=== PATIENT | female | born 1995 | race Caucasian/White ===

== ENCOUNTER 2020-11-13 17:58 | Inpatient (IN) | payer SELFPAY ==
[~2020-11-13] VITALS: Ht 167.6 cm; Wt 64.0 kg
[2020-11-13 18:39] LABS: HEMATOCRIT 42.7 % (37.0-47.0); HEMOGLOBIN 14.9 g/dl (12.0-16.0); IMMATURE GRANULOCYTES 0.4 % (0.0-5.0); MEAN CORPUSCULAR HGB 40.8 pG CALC (26.0-32.0); MEAN CORPUSCULAR HGB CONC 34.9 g/dL CAL (32.0-36.0); NEUT# 6.8 thou/uL (2.00-7.15); RED BLOOD COUNT 3.65 mill/uL (4.20-5.60)
[2020-11-13 18:40] LABS: URINE BLOOD DIPSTICK SMALL (NEGATIVE); URINE COLOR YELLOW; URINE GLUCOSE - DIPSTICK NEGATIVE (NEGATIVE); URINE KETONE TRACE mg/dL (NEGATIVE); URINE LEUK ESTERASE TRACE (NEGATIVE); URINE NITRITE - DIPSTICK NEGATIVE (Negative); URINE PROTEIN - DIPSTICK TRACE mg/dL (NEG-TRACE); URINE SPECIFIC GRAVITY 1.015
[2020-11-13 18:49] LABS: URINE BILIRUBIN - DIPSTICK SMALL (NEGATIVE)
[2020-11-13 18:55] LABS: URINE SQUAMOUS EPITHELIAL CELL FEW EPI/hpf (0-FEW); URINE WBC 0-2 WBC/hpf (0-5)
[2020-11-13 18:56] LABS: ALBUMIN 4.2 g/dL (3.2-5.0); ALKALINE PHOSPHATASE 126 u/l (38-126); ANION GAP 10 (6-22 (CALC)); BILIRUBIN, TOTAL 1.1 mg/dL (0.0-1.4); BUN 9 mg/dL (7-17); BUN/CREATININE RATIO 18 (12-20 (CALC)); CARBON DIOXIDE 29 mmol/l (22-30); CHLORIDE 104 mmol/l (95-108); CREATININE 0.5 mg/dL (0.5-1.0); GFR > 60 ML/MIN (>=60 (CALC)); GFR FOR AFR.AMER. > 60 ML/MIN (>=60 (CALC)); POTASSIUM 3.2 mmol/l (3.5-5.1); SGOT/AST 276 u/l (14-36); SODIUM 139 mmol/l (137-146); TOTAL PROTEIN 6.9 g/dL (6.3-8.2)
[2020-11-13 19:03] LABS: LIPASE 5552 u/l (23-300)
[2020-11-13 21:40] VITALS: BP 147/102
[2020-11-14] VITALS (7 sets, daily range): BP systolic 136–147; BP diastolic 89–101
[2020-11-14 05:31] LABS: HEMATOCRIT 37.3 % (37.0-47.0); MEAN CORPUSCULAR HGB 40.5 pG CALC (26.0-32.0); MEAN CORPUSCULAR HGB CONC 34.3 g/dL CAL (32.0-36.0); RED BLOOD COUNT 3.16 mill/uL (4.20-5.60); RED CELL DISTRI WIDTH 14.8 % (11.5-15.5)
[2020-11-14 05:33] LABS: INTERNATIONAL NORMALIZED RATIO 1.1 RATIO (0.7-1.3); PROTHROMBIN TIME 10.6 SECONDS (9.0-12.5)
[2020-11-14 05:39] LABS: HEMOGLOBIN 12.8 g/dl (12.0-16.0)
[2020-11-14 05:50] LABS: ALKALINE PHOSPHATASE 87 u/l (38-126); AMYLASE 307 u/l (30-110); ANION GAP 7 (6-22 (CALC)); BILIRUBIN, TOTAL 0.9 mg/dL (0.0-1.4); BUN 10 mg/dL (7-17); BUN/CREATININE RATIO 19 (12-20 (CALC)); CARBON DIOXIDE 27 mmol/l (22-30); CHLORIDE 107 mmol/l (95-108); CREATININE 0.5 mg/dL (0.5-1.0); GFR > 60 ML/MIN (>=60 (CALC)); GFR FOR AFR.AMER. > 60 ML/MIN (>=60 (CALC)); MAGNESIUM 1.6 mg/dL (1.6-2.3); POTASSIUM 2.9 mmol/l (3.5-5.1); SGOT/AST 142 u/l (14-36); SODIUM 138 mmol/l (137-146)
[2020-11-14 06:19] LABS: TOTAL PROTEIN 5.4 g/dL (6.3-8.2)
[2020-11-14 06:20] LABS: LIPASE 4195 u/l (23-300)
[2020-11-15 04:00] VITALS: BP 135/92
[2020-11-15 05:32] LABS: HEMATOCRIT 34.7 % (37.0-47.0); MEAN CORPUSCULAR HGB 40.8 pG CALC (26.0-32.0); MEAN CORPUSCULAR HGB CONC 34.6 g/dL CAL (32.0-36.0); RED BLOOD COUNT 2.94 mill/uL (4.20-5.60); RED CELL DISTRI WIDTH 14.1 % (11.5-15.5)
[2020-11-15 05:56] LABS: ANION GAP 6 (6-22 (CALC)); BUN 5 mg/dL (7-17); BUN/CREATININE RATIO 12 (12-20 (CALC)); CARBON DIOXIDE 24 mmol/l (22-30); CHLORIDE 105 mmol/l (95-108); CREATININE 0.4 mg/dL (0.5-1.0); GFR > 60 ML/MIN (>=60 (CALC)); GFR FOR AFR.AMER. > 60 ML/MIN (>=60 (CALC)); INTERNATIONAL NORMALIZED RATIO 1.1 RATIO (0.7-1.3); MAGNESIUM 1.8 mg/dL (1.6-2.3); POTASSIUM 3.2 mmol/l (3.5-5.1); PROTHROMBIN TIME 11.3 SECONDS (9.0-12.5); SODIUM 132 mmol/l (137-146)
[2020-11-15 06:41] LABS: LIPASE 3081 u/l (23-300)
[2020-11-15 07:35] VITALS: BP 150/96
[2020-11-15] MEDS ORDERED: ZOFRAN4 MG/TAB PO (15:24)
[2020-11-15] MEDS ORDERED: ULTRAM50 MG PO (15:25)
[2020-11-15 16:00] VITALS: BP 137/98
== END 2020-11-15 16:56 | disposition home or self-care (01) | DRG 440 ==
LOC: ED 17:58 → ED-I 20:01 → ED 20:23 → MS2 20:24
PROVIDERS: Nurse Practitioner; ADMIT Internal Medicine; ATTEND Internal Medicine
DX: K85.20 Alcohol induced acute pancreatitis without necrosis or infection (principal); F10.20 Alcohol dependence, uncomplicated; K70.9 Alcoholic liver disease, unspecified; E87.6 Hypokalemia; D69.6 Thrombocytopenia, unspecified; N20.0 Calculus of kidney; F17.200 Nicotine dependence, unspecified, uncomplicated; Z87.442 Personal history of urinary calculi; Z20.822 Contact with and (suspected) exposure to COVID-19
CPT/HCPCS: J1650; J3475

== ENCOUNTER 2021-03-31 22:08 | Emergency (ER) | payer SELFPAY ==
[~2021-03-31] VITALS: Ht 167.6 cm; Wt 64.0 kg
[~2021-03-31 22:08] MED LIST: ULTRAM50 MG PO; ZOFRAN4 MG/TAB PO
[2021-03-31 22:54] LABS: IMMATURE GRANULOCYTES 0.2 % (0.0-5.0); MEAN CORPUSCULAR HGB CONC 35.5 g/dL CAL (32.0-36.0); RED BLOOD COUNT 3.74 mill/uL (4.20-5.60); RED CELL DISTRI WIDTH 13.1 % (11.5-15.5)
[2021-03-31 23:00] LABS: HEMOGLOBIN 14.2 g/dl (12.0-16.0)
[2021-03-31 23:08] LABS: ALKALINE PHOSPHATASE 126 u/l (38-126); AMYLASE 54 u/l (30-110); BILIRUBIN, TOTAL 0.9 mg/dL (0.0-1.4); BUN 7 mg/dL (7-17); BUN/CREATININE RATIO 12 (12-20 (CALC)); CHLORIDE 94 mmol/l (95-108); CREATININE 0.6 mg/dL (0.5-1.0); GFR > 60 ML/MIN (>=60 (CALC)); GFR FOR AFR.AMER. > 60 ML/MIN (>=60 (CALC)); LIPASE 64 u/l (23-300); POTASSIUM 3.2 mmol/l (3.5-5.1)
[2021-03-31 23:09] LABS: ALBUMIN 4.6 g/dL (3.2-5.0); ANION GAP 20 (6-22 (CALC)); CARBON DIOXIDE 30 mmol/l (22-30); SGOT/AST 275 u/l (14-36); SODIUM 141 mmol/l (137-146); TOTAL PROTEIN 7.9 g/dL (6.3-8.2)
[2021-04-01 00:11] VITALS: BP 132/82
== END 2021-04-01 00:20 | disposition home or self-care (01) | DRG 897 ==
LOC: ED 22:08
PROVIDERS: Emergency Medicine
DX: F10.229 Alcohol dependence with intoxication, unspecified (principal); E87.6 Hypokalemia; F17.210 Nicotine dependence, cigarettes, uncomplicated
CPT/HCPCS: S0164

== ENCOUNTER 2021-04-14 20:01 | Emergency (ER) | payer SELFPAY ==
[~2021-04-14] VITALS: Ht 167.6 cm; Wt 65.0 kg
[2021-04-14 21:12] LABS: HEMATOCRIT 35.8 % (37.0-47.0); HEMOGLOBIN 12.8 g/dl (12.0-16.0); MEAN CELL VOLUME 108.5 fL CALC (80.0-100.0); MEAN CORPUSCULAR HGB 38.8 pG CALC (26.0-32.0); MEAN CORPUSCULAR HGB CONC 35.8 g/dL CAL (32.0-36.0); RED BLOOD COUNT 3.3 mill/uL (4.20-5.60); RED CELL DISTRI WIDTH 14.5 % (11.5-15.5)
[2021-04-14 21:28] LABS: IMMATURE GRANULOCYTES 1.1 % (0.0-5.0); NEUT# 2.01 thou/uL (2.00-7.15)
[2021-04-14 21:30] LABS: ALBUMIN 3.7 g/dL (3.2-5.0); ALKALINE PHOSPHATASE 158 u/l (38-126); BUN 6 mg/dL (7-17); BUN/CREATININE RATIO 11 (12-20 (CALC)); CARBON DIOXIDE 27 mmol/l (22-30); CHLORIDE 94 mmol/l (95-108); CREATININE 0.5 mg/dL (0.5-1.0); ETHYL ALCOHOL 0 mg/dl (0-30); GFR > 60 ML/MIN (>=60 (CALC)); GFR FOR AFR.AMER. > 60 ML/MIN (>=60 (CALC)); POTASSIUM 2.8 mmol/l (3.5-5.1); TOTAL PROTEIN 6.9 g/dL (6.3-8.2)
[2021-04-14 21:37] LABS: ANION GAP 14 (6-22 (CALC)); BILIRUBIN, TOTAL 2.6 mg/dL (0.0-1.4); SGOT/AST 766 u/l (14-36); SODIUM 132 mmol/l (137-146)
[2021-04-15 00:23] VITALS: BP 131/70
== END 2021-04-15 00:23 | disposition left against medical advice (07) | DRG 810 ==
LOC: ED 20:01
PROVIDERS: Emergency Medicine
DX: D61.818 Other pancytopenia (principal); R00.2 Palpitations; F10.20 Alcohol dependence, uncomplicated; F17.200 Nicotine dependence, unspecified, uncomplicated; Z87.442 Personal history of urinary calculi; Z91.19 Patient's noncompliance with other medical treatment and regimen
CPT/HCPCS: J2060; Q9967

== ENCOUNTER 2021-08-23 17:14 | Emergency (ER) | payer SELFPAY ==
[~2021-08-23] VITALS: Ht 167.6 cm; Wt 60.0 kg
[2021-08-23] MEDS ORDERED: CEPHALEXIN500 M1 PO (19:16)
[2021-08-23 19:24] VITALS: BP 150/70
== END 2021-08-23 19:48 | disposition home or self-care (01) | DRG 605 ==
LOC: ED 17:14
PROC: 0HQGXZZ Repair Left Hand Skin, External Approach (ICD-10-PCS; principal; 2021-08-23)
DX: S61.012A Laceration without foreign body of left thumb without damage to nail, initial encounter (principal); F17.200 Nicotine dependence, unspecified, uncomplicated; W25.XXXA Contact with sharp glass, initial encounter; Y92.009 Unspecified place in unspecified non-institutional (private) residence as the place of occurrence of the external cause

== ENCOUNTER 2022-04-14 07:58 | Emergency (ER) | payer SELFPAY ==
[~2022-04-14] VITALS: Ht 167.6 cm; Wt 63.0 kg
[~2022-04-14 07:58] MED LIST changes: +CEPHALEXIN500 M1 PO
[2022-04-14] MEDS ORDERED: PAXLOVID PO (09:42)
[2022-04-14 09:50] VITALS: BP 105/67
== END 2022-04-14 09:58 | disposition home or self-care (01) | DRG 179 ==
LOC: ED 07:58
DX: U07.1 COVID-19 (principal); R05.9 Cough, unspecified; R11.2 Nausea with vomiting, unspecified; R52 Pain, unspecified; F17.200 Nicotine dependence, unspecified, uncomplicated

== ENCOUNTER 2022-05-07 22:48 | Emergency (ER) | payer SELFPAY ==
[~2022-05-07] VITALS: Ht 167.6 cm; Wt 63.0 kg
[~2022-05-07 22:48] MED LIST changes: +PAXLOVID PO
[2022-05-07 23:09] LABS: HEMOGLOBIN 13.2 g/dl (12.0-16.0); IMMATURE GRANULOCYTES 0.3 % (0.0-5.0); MEAN CELL VOLUME 103.6 fL CALC (80.0-100.0); MEAN CORPUSCULAR HGB 34.2 pG CALC (26.0-32.0); NEUT# 6.23 thou/uL (2.00-7.15); RED BLOOD COUNT 3.86 mill/uL (4.20-5.60); RED CELL DISTRI WIDTH 14.5 % (11.5-15.5)
[2022-05-07 23:22] LABS: ALBUMIN 5.1 g/dL (3.2-5.0); ALKALINE PHOSPHATASE 93 u/l (38-126); ANION GAP 30 (6-22 (CALC)); BILIRUBIN, TOTAL 1.2 mg/dL (0.0-1.4); BUN 9 mg/dL (7-17); BUN/CREATININE RATIO 10 (12-20 (CALC)); CARBON DIOXIDE 10 mmol/l (22-30); CHLORIDE 100 mmol/l (95-108); CREATININE 0.9 mg/dL (0.5-1.0); GFR FOR AFR.AMER. > 60 ML/MIN (>=60 (CALC)); GFR OTHER RACES > 60 ML/MIN (>=60 (CALC)); LIPASE 95 u/l (23-300); POTASSIUM 3.2 mmol/l (3.5-5.1); SGOT/AST 99 u/l (14-36); SODIUM 137 mmol/l (137-146); TOTAL PROTEIN 8.6 g/dL (6.3-8.2)
[2022-05-07 23:36] LABS: URINE BILIRUBIN - DIPSTICK NEGATIVE (NEGATIVE); URINE BLOOD DIPSTICK MODERATE (NEGATIVE); URINE COLOR YELLOW; URINE GLUCOSE - DIPSTICK NEGATIVE (NEGATIVE); URINE KETONE >=80 mg/dL (NEGATIVE); URINE LEUK ESTERASE NEGATIVE (NEGATIVE); URINE PH 5.5 (4.5-8.0); URINE PROTEIN - DIPSTICK 100 mg/dL (NEG-TRACE); URINE SPECIFIC GRAVITY >=1.030; URINE UROBILINOGEN - DIPSTICK 0.2 E.U./dL (0.2)
[2022-05-07 23:37] LABS: URINE NITRITE - DIPSTICK NEGATIVE (Negative)
[2022-05-07 23:46] LABS: URINE BACTERIA MODERATE hpf; URINE MUCUS FEW hpf (NONE-FEW); URINE SQUAMOUS EPITHELIAL CELL MODERATE EPI/hpf (0-FEW)
[2022-05-08] VITALS: BP 138/89
[2022-05-08] MEDS ORDERED: BACTRIM DS1 TAB PO (00:25)
[2022-05-08] MEDS ORDERED: PROMETHAZINE HY25 M1 PO (00:25)
[2022-05-08 00:30] VITALS: BP 116/75
[2022-05-08 00:39] VITALS: BP 116/75
== END 2022-05-08 01:00 | disposition home or self-care (01) | DRG 392 ==
LOC: ED 22:48
PROVIDERS: Family Medicine
DX: K52.9 Noninfective gastroenteritis and colitis, unspecified (principal); N39.0 Urinary tract infection, site not specified; F17.200 Nicotine dependence, unspecified, uncomplicated; Z87.442 Personal history of urinary calculi

== ENCOUNTER 2022-05-23 13:11 | Emergency (ER) | payer SELFPAY ==
[~2022-05-23] VITALS: Ht 167.6 cm; Wt 63.6 kg
[2022-05-23] VITALS (29 sets, daily range): BP systolic 118–136; BP diastolic 69–95
[~2022-05-23 13:11] MED LIST changes: +BACTRIM DS1 TAB PO; +PROMETHAZINE HY25 M1 PO
[2022-05-23 14:37] LABS: HEMATOCRIT 40.6 % (37.0-47.0); HEMOGLOBIN 13.9 g/dl (12.0-16.0); IMMATURE GRANULOCYTES 0.5 % (0.0-5.0); MEAN CELL VOLUME 103.8 fL CALC (80.0-100.0); MEAN CORPUSCULAR HGB 35.5 pG CALC (26.0-32.0); MEAN CORPUSCULAR HGB CONC 34.2 g/dL CAL (32.0-36.0); NEUT# 1.99 thou/uL (2.00-7.15); RED BLOOD COUNT 3.91 mill/uL (4.20-5.60); RED CELL DISTRI WIDTH 18.6 % (11.5-15.5)
[2022-05-23 14:40] LABS: ALKALINE PHOSPHATASE 129 u/l (38-126); BUN 9 mg/dL (7-17); BUN/CREATININE RATIO 13 (12-20 (CALC)); CHLORIDE 103 mmol/l (95-108); CREATININE 0.7 mg/dL (0.5-1.0); ETHYL ALCOHOL 280 mg/dl (0-30); GFR FOR AFR.AMER. > 60 ML/MIN (>=60 (CALC)); GFR OTHER RACES > 60 ML/MIN (>=60 (CALC)); POTASSIUM 3.1 mmol/l (3.5-5.1); TOTAL PROTEIN 7.3 g/dL (6.3-8.2)
[2022-05-23 14:43] LABS: ANION GAP 13 (6-22 (CALC)); BILIRUBIN, TOTAL 0.6 mg/dL (0.0-1.4); CARBON DIOXIDE 31 mmol/l (22-30); SODIUM 144 mmol/l (137-146)
[2022-05-23 14:44] LABS: MAGNESIUM 1.2 mg/dL (1.6-2.3); SGOT/AST 496 u/l (14-36)
[2022-05-23 14:46] LABS: URINE BLOOD DIPSTICK LARGE (NEGATIVE); URINE GLUCOSE - DIPSTICK NEGATIVE (NEGATIVE); URINE KETONE TRACE mg/dL (NEGATIVE); URINE LEUK ESTERASE TRACE (NEGATIVE); URINE PH 6.5 (4.5-8.0); URINE PROTEIN - DIPSTICK 30 mg/dL (NEG-TRACE); URINE SPECIFIC GRAVITY 1.015
[2022-05-23 14:50] LABS: URINE BILIRUBIN - DIPSTICK SMALL (NEGATIVE)
[2022-05-23 14:51] LABS: URINE COLOR DK. YELLOW; URINE EPITHELIAL CELLS MODERATE EPI/hpf (0-FEW); URINE MUCUS MODERATE hpf (NONE-FEW); URINE NITRITE - DIPSTICK NEGATIVE (Negative); URINE RBC 25-50 RBC/hpf (0-5); URINE WBC 0-2 WBC/hpf (0-5)
[2022-05-23 17:18] LABS: INTERNATIONAL NORMALIZED RATIO 1.1 RATIO (0.7-1.3); PROTHROMBIN TIME 11.2 SECONDS (9.0-12.5)
== END 2022-05-23 23:30 | disposition short-term general hospital (02) | DRG 392 ==
LOC: ED 13:11
PROVIDERS: Nurse Practitioner
DX: R10.31 Right lower quadrant pain (principal); D69.6 Thrombocytopenia, unspecified; E87.6 Hypokalemia; E83.42 Hypomagnesemia; R74.01 Elevation of levels of liver transaminase levels; N20.0 Calculus of kidney; K76.0 Fatty (change of) liver, not elsewhere classified; F10.10 Alcohol abuse, uncomplicated; Y90.8 Blood alcohol level of 240 mg/100 ml or more
CPT/HCPCS: J2060; J3475; S0164